=== PATIENT | female | born 1975 | race Caucasian/White ===

== ENCOUNTER 2021-09-19 20:36 | Emergency (ER) | payer MEDICAID ==
[~2021-09-19] VITALS: Ht 162.6 cm; Wt 38.1 kg
[2021-09-19 20:43] VITALS: BP 127/94
== END 2021-09-19 22:31 | disposition left against medical advice (07) ==
LOC: ER 20:36
DX: R44.0 Auditory hallucinations (principal); R45.851 Suicidal ideations; Z53.21 Procedure and treatment not carried out due to patient leaving prior to being seen by health care provider